=== PATIENT | female | born 1970 | race Two or more races ===

== ENCOUNTER 2021-11-07 08:00 | Outpatient (CLI) | payer OTHER | END 2021-11-07 08:30 | disposition home or self-care (01) | LOC: PPH VACUNA 08:00 | PROVIDERS: ATTEND Emergency Medicine Pediatric Emergency Medicine | DX: Z23 Encounter for immunization (principal) ==

== ENCOUNTER 2025-03-12 10:08 | Outpatient (CLI) | payer OTHER ==
[2025-03-12 11:55] LABS: PH,URINE 6.5 (5.0-8.0); URINE APPEARANCE Clear; URINE BILIRRUBIN Negative (NEGATIVE); URINE BLOOD Trace; URINE COLOR Yellow; URINE GLUCOSE Negative (NEGATIVE); URINE KETONE Negative (NEGATIVE); URINE LEUKOCYTE Large; URINE NITRATE Negative; URINE PROTEIN Negative (NEGATIVE)
[2025-03-12 11:57] LABS: HEMATOCRIT 39.3 % (36.0-45.00); HEMOGLOBIN 13.7 g/dL (12.0-15.00); MEAN CELL VOLUME 92.9 fL (80.00-100.00); MEAN CORPUSCULAR HEMOGLOBIN 32.3 pg (27.00-32.0); MEAN CORPUSCULAR HGB CONC 34.8 g/dl (32.0-36.0); PLATELET COUNT 506 K/uL (150-450); RED BLOOD COUNT 4.23 M/uL (4.00-6.00); RED CELL DISTRIBUTION WIDTH 12.7 % (11.5-14.5)
[2025-03-12 12:02] LABS: URINE BACTERIA 236.1 uL (0.0-1933); URINE EPITHELIAL CELLS 25.3 uL (0.0-38.8); URINE RBC 19.2 uL (0.0-20.8)
[2025-03-12 12:16] LABS: COVID-19 AG NEGATIVE (NEGATIVE)
[2025-03-12 12:28] LABS: MYCOPLASMA PNEUMONIAE IGM NON REACTIVE (NO REACTIVE)
[2025-03-12 12:30] LABS: INFLUENZA A AG NEGATIVE (NEGATIVE)
[2025-03-12 13:38] LABS: BILIRUBIN TOTAL 0.5 mg/dL (0.3-1.2); CALCIUM 9.9 mg/dL (8.5-10.1); CHOL HDL RATIO 3.5 (0-5.0); CREATININE SERUM 0.81 mg/dL (0.55-1.02); GFR 73.14; GLOBULINA 3.6 G/DL (2.4-3.5); POTASSIUM 4.41 mEq/L (3.5-5.1); T4 FREE 1.18 NG/ML (0.76-1.46); TOTAL PROTEIN 7.6 gm/dL (6.4-8.2); TSH 0.291 uIU/mL (0.358-3.74)
[2025-03-16 09:10] LABS: ESTRADIOL SERUM < 5.0 pg/mL (.); TESTOSTERONE,TOTAL < 3.00 ng/dL (4-50)
== END 2025-03-12 10:14 | disposition home or self-care (01) ==
LOC: LAB 10:08
PROVIDERS: ATTEND General Practice
DX: Z12.11 Encounter for screening for malignant neoplasm of colon (principal); D64.9 Anemia, unspecified; E03.9 Hypothyroidism, unspecified; N95.1 Menopausal and female climacteric states; I10 Essential (primary) hypertension; C51.9 Malignant neoplasm of vulva, unspecified; N30.00 Acute cystitis without hematuria; E83.51 Hypocalcemia; A64 Unspecified sexually transmitted disease; N39.0 Urinary tract infection, site not specified; R97.8 Other abnormal tumor markers; R79.89 Other specified abnormal findings of blood chemistry; E55.9 Vitamin D deficiency, unspecified; A60.9 Anogenital herpesviral infection, unspecified; J20.9 Acute bronchitis, unspecified; J06.9 Acute upper respiratory infection, unspecified; Z20.822 Contact with and (suspected) exposure to COVID-19; R50.9 Fever, unspecified; R94.5 Abnormal results of liver function studies; E87.8 Other disorders of electrolyte and fluid balance, not elsewhere classified

== ENCOUNTER 2025-03-17 08:38 | Outpatient (CLI) | payer OTHER | END 2025-03-17 08:41 | disposition home or self-care (01) | LOC: MAMO-SONO 08:38 | PROVIDERS: ATTEND Obstetrics & Gynecology | DX: N63.0 Unspecified lump in unspecified breast (principal); N60.11 Diffuse cystic mastopathy of right breast; N60.12 Diffuse cystic mastopathy of left breast; N64.0 Fissure and fistula of nipple; Z12.31 Encounter for screening mammogram for malignant neoplasm of breast ==

== ENCOUNTER 2025-03-18 08:12 | Outpatient (CLI) | payer OTHER | END 2025-03-18 08:13 | disposition home or self-care (01) | LOC: NUCLEAR 08:12 | PROVIDERS: ATTEND Internal Medicine Interventional Cardiology | DX: R00.2 Palpitations (principal); I49.8 Other specified cardiac arrhythmias ==

== ENCOUNTER 2025-03-25 14:08 | Outpatient (CLI) | payer OTHER | END 2025-03-25 14:09 | disposition home or self-care (01) | LOC: NUCLEAR 14:08 | PROVIDERS: ATTEND General Practice | DX: M81.0 Age-related osteoporosis without current pathological fracture (principal) ==

== ENCOUNTER 2025-04-13 15:55 | Outpatient (CLI) | payer OTHER | END 2025-04-13 16:03 | disposition home or self-care (01) | LOC: RAD 15:55 | DX: R10.9 Unspecified abdominal pain (principal); R10.12 Left upper quadrant pain; K57.31 Diverticulosis of large intestine without perforation or abscess with bleeding ==

== ENCOUNTER 2025-04-14 10:35 | Outpatient (CLI) | payer OTHER | END 2025-04-14 10:37 | disposition home or self-care (01) | LOC: SONOGRAMA 10:35 | DX: N18.2 Chronic kidney disease, stage 2 (mild) (principal); N20.0 Calculus of kidney ==

== ENCOUNTER 2025-05-10 11:26 | Outpatient (CLI) | payer OTHER ==
[2025-05-10 12:32] LABS: PH,URINE 5.5 (5.0-8.0); URINE APPEARANCE Clear; URINE BILIRRUBIN Negative (NEGATIVE); URINE BLOOD Small; URINE COLOR Yellow; URINE GLUCOSE Negative (NEGATIVE); URINE KETONE Negative (NEGATIVE); URINE LEUKOCYTE Moderate; URINE NITRATE Negative; URINE PROTEIN Negative (NEGATIVE); URINE UROBILINOGEN 0.2 E.U./dl
[2025-05-10 12:34] LABS: URINE BACTERIA 145.6 uL (0.0-1933); URINE RBC 18.4 uL (0.0-20.8); URINE WBC 140.7 uL (0.0-23.2)
[2025-05-10 12:36] LABS: URINE CAST 0.29 uL (0.0-1.40)
[2025-05-10 13:21] LABS: CALCIUM 9.9 mg/dL (8.5-10.1); CREATININE SERUM 0.72 mg/dL (0.55-1.02); GFR 83.79; PHOSPHOROUS 3.5 mg/dL (2.5-4.9); POTASSIUM 4.31 mEq/L (3.5-5.1)
== END 2025-05-10 11:35 | disposition home or self-care (01) ==
LOC: LAB 11:26
DX: Z12.11 Encounter for screening for malignant neoplasm of colon (principal); R79.89 Other specified abnormal findings of blood chemistry; N39.0 Urinary tract infection, site not specified; Z13.1 Encounter for screening for diabetes mellitus; Z13.29 Encounter for screening for other suspected endocrine disorder; M81.0 Age-related osteoporosis without current pathological fracture; R80.9 Proteinuria, unspecified; E03.8 Other specified hypothyroidism; E06.3 Autoimmune thyroiditis; Z13.89 Encounter for screening for other disorder; Z13.9 Encounter for screening, unspecified; R82.90 Unspecified abnormal findings in urine

== ENCOUNTER 2025-05-11 13:31 | Outpatient (CLI) | payer OTHER ==
[2025-05-11 13:55] LABS: ob NEGATIVE (NEGATIVE)
== END 2025-05-11 13:33 | disposition home or self-care (01) ==
LOC: LAB 13:31
PROVIDERS: ATTEND Internal Medicine
DX: Z12.11 Encounter for screening for malignant neoplasm of colon (principal); R79.89 Other specified abnormal findings of blood chemistry; N39.0 Urinary tract infection, site not specified; Z13.1 Encounter for screening for diabetes mellitus; Z13.29 Encounter for screening for other suspected endocrine disorder; M81.0 Age-related osteoporosis without current pathological fracture; R80.9 Proteinuria, unspecified; E03.8 Other specified hypothyroidism; E06.3 Autoimmune thyroiditis; Z13.89 Encounter for screening for other disorder; Z13.9 Encounter for screening, unspecified; E21.3 Hyperparathyroidism, unspecified; R82.90 Unspecified abnormal findings in urine